=== PATIENT | male | born 1990 | race American Indian/Alaskan Native ===

== ENCOUNTER 2018-07-08 16:54 | Emergency (ER) | payer SELFPAY ==
[2018-07-08 17:03] VITALS: BP 115/65
--- NOTE | 2018-07-08 17:56 | Emergency Department Report ---
Chief Complaint: Urogenital-Male Stated Complaint: GRION AREA ITCH Time Seen by Provider: 07/08/18 17:49 - HPI History of Present Illness: Mr. Cruz is a ED for STD check. Minor irritation in the genital region. - Exam Vital Signs: Vital Signs 07/08/18 16:59 Temperature 98.6 F Pulse Rate 77 Respiratory 18 Rate Blood Pressure 115/65 O2 Sat by Pulse 98 Oximetry MSE screening note: Focused history and physical exam performed. Due to findings the following was ordered: ED Medical Decision Making - Medical Decision Making Mr. Cruz referred to health department for STD evaluation and treatment. ED Disposition for MSE Clinical Impression: Urethritis Disposition: DC-01 TO HOME OR SELFCARE Is pt being admited?: No Does the pt Need Aspirin: No Condition: Stable Instructions: Nonspecific Urethritis in Men (ED) Referrals: [facility] Depart [Outside] - 3-5 Days
== END 2018-07-08 18:03 | disposition home or self-care (01) ==
LOC: ED 16:54
DX: N34.2 Other urethritis (principal)
CPT/HCPCS: 99282